=== PATIENT | male | born 1975 | race Caucasian/White ===

== ENCOUNTER 2019-07-01 16:31 | Inpatient (IN) ==
--- NOTE | 2019-07-01 16:45 | Emergency Department Note ---
ED Disposition Clinical Impression: Acute appendicitis Disposition: Admitted as Observation Condition on Discharge: Good Instructions: DI for Acute Abdomen Additional Instructions: Dr. Olivo information clerk for Dr. Fuentes will admit for Dr. Gina Gallagher is also aware this patient and will have emergent surgery. Referrals: David Lawrence MD [Primary Care Provider] - - Critical Care Critical Care Time: No Attestation: On 07/01/19, the high probability of a clinically significant, sudden or life threatening deterioration of the following system(s) required my full and direct attention, intervention and personal management. The time I documented below is in addition to time spent performing reported procedures but includes the following listed in this critical care notation. Medical Decision Making - Medical Records Medical records reviewed: Yes: I reviewed the patient's medical records. - Bry Inquiry Pt receiving controlled substance: No Vital Signs: 07/01/19 16:32 Pulse Rate [Radial] 153 H Respiratory Rate 20 Blood Pressure [Right Arm] 128/102 H Blood Pressure Mean [Right Arm] 110 Blood Pressure Source [Right Arm] Automatic Cuff Blood Pressure Position [Right Arm] Sitting 02 Sat by Pulse Oximetry 96 Oxygen Delivery Method Room Air - Lab Data Lab results reviewed: Yes: I reviewed the patient's lab results. Lab Results 07/01/19 16:50: WBC 17.5 H, RBC 4.64, Hgb 14.1, Hct 42.8, MCV 92.2, MCH 30.4, MCHC 33.0, RDW 12.7, Plt Count 283, MPV 8.5, Neut % (Auto) 88.9 H, Lymph % (Auto) 6.1 L, Bailey % (Auto) 4.9, Eos % (Auto) 0.1, Baso % (Auto) 0.1, Neut # (Auto) 15.6 H, Lymph # (Auto) 1.1, Bailey # (Auto) 0.9, Eos # (Auto) 0.0, Baso # (Auto) 0.0 07/01/19 16:50: Sodium 130 L, Potassium 3.6, Chloride 94 L, Carbon Dioxide 23, Anion Gap 16.6 H, BUN 13, Creatinine 1.00, Estimated Creat Clear 129, Estimated GFR 80, Est GFR ( Amer) 97, Glucose 146 H, Calcium 9.5, Total Bilirubin 1.6 H, AST 40, ALT 76, Alkaline Phosphatase 86, Total Protein 7.9, Albumin 4.5, Globulin 3.4 H, Albumin/Globulin Ratio 1.3 Result diagrams: 07/01/19 16:50 07/01/19 16:50 Orders (Tests/Meds): ED MEDICATIONS Generic Name Dose Route Start Last Admin Trade Name Freq PRN Reason Stop Dose Admin Sodium Chloride 1,000 mls @ 999 mls/hr 07/01/19 16:45 07/01/19 16:56 Sod Chlor 0.9% 1000ml Bag IV 07/01/19 17:45 999 mls/hr .Q1H1M DAIN Administration Discontinued Medications Generic Name Dose Route Start Last Admin Trade Name Freq PRN Reason Stop Dose Admin Morphine Sulfate 4 mg 07/01/19 16:48 07/01/19 16:57 Morphine 4mg/Ml Syringe IV 07/01/19 16:49 4 mg ONCE ONE Administration Ondansetron HCl 4 mg 07/01/19 16:48 07/01/19 16:57 Zofran 4mg/2ml Vial IV 07/01/19 16:49 4 mg ONCE ONE Administration ORDERS Category Date Time Status CT abdomen pelvis wo con Stat Cat Scan 07/01/19 16:40 Taken Complete Blood Count Auto Diff Stat Lab 07/01/19 16:50 Results - CT Data CT Scan: Abdomen (Patient has an acute rupture of the appendix with significant inflammation in the surrounding adipose tissue) Abdominal Pain HPI - General Chief Complaint: Abdominal Pain Stated Complaint: Right side pain Time Seen by Provider: 07/01/19 16:31 Mode of Arrival: Ambulatory Limitations: No Limitations Description of Symptoms (Recalled from ER Triage Doc. by RN): States he thinks he has appendicitis. Complaint of lower abdomen pain that started on thursday but has gotten way worse today. - History of Present Illness HPI narrative: 44-year-old male presents the ED with right lower quadrant pain. He states the pain started couple days ago but progressively got worse as the days gone on. He did complain of rebound tenderness he stated when he was coming into the ED and crossed over the speed bumps that it did accelerate pain in his right lower quadrant secondary to the rebound effect. He describes the pain as sharp and fullness and states the pain is 8 out of 10. Exacerbating factors include movement specifically of the right leg and alleviating factors include rest. Patient denies any recent fevers shakes or chills. But he does state that his heart rate feels rapid he presently is tachycardic with a heart rate of 131. Patient also denies any nausea or vomiting. Patient has not had any abdominal surgeries. - Related Data Allergies Allergy/AdvReac Type Severity Reaction Status Date / Time No Known Allergies Allergy Verified 07/01/19 16:40 [facility] History - Hepatitis A Screen Drug use history?: No High risk sexual behaviors?: No History of sexually transmitted infection?: No Currently employed?: No Childcare worker?: No Do you have indoor plumbing?: Yes Do you have electricity?: Yes Attestation statement:: This patient has been screened for Hepatitis A risk factors. I have reviewed the patient's past medical history: Yes - Social History Educational Level: Completed High School Alcohol Intake: never Occupational Status: employed Housing: house ROS Obtained: Yes All systems reviewed & no additional complaints - Constitutional Constitutional: Reports system reviewed and no additional complaints, except as docu - Eyes Eyes: Reports system reviewed and no additional complaints, except as docu - ENT Ears, Nose, Mouth, and Throat: Reports system reviewed and no additional complaints, except as docu - Cardiovascular Cardiovascular: Reports system reviewed and no additional complaints, except as docu - Respiratory Respiratory: Yes system reviewed and no additional complaints, except as docu - Gastrointestinal Gastrointestingal: Reports: system reviewed and no additional complaints, except as docu - Genitourinary Male Genitourinary: Reports system reviewed and no additional complaints, except as docu Female Genitourinary: Reports system reviewed and no additional complaints, except as docu - Musculoskeletal Musculoskeletal: Reports system reviewed and no additional complaints, except as docu - Integumentary/Breasts Skin/Breast: Reports system reviewed and no additional complaints, except as docu - Neurologic Neurologic: Reports system reviewed and no additional complaints, except as docu - Endocrine Endocrine: Reports system reviewed and no additional complaints, except as docu - Hematologic/Lymphatic Henatologic/Lymphatic: Reports system reviewed and no additional complaints, except as docu - Allergic/Immunologic Allergic/Immunologic: Reports system reviewed and no additional complaints, except as docu Physical Exam - General General appearance: alert, anxious - Head Head exam: atraumatic, normocephalic - Eye Eye exam: Present: normal appearance, PERRL - ENT ENT exam: Present: normal exam, normal oropharynx - Neck Neck exam: Present: normal inspection - Chest Chest inspection: Present: normal inspection, symmetric chest wall rise - Respiratory Respiratory exam: Present: normal lung sounds bilaterally. Absent: respiratory distress - Cardiovascular Cardiovascular exam: Present: tachycardia - Abdominal Exam Abdominal exam: Present: soft, guarding, rebound, psoas sign, obturator sign - Back Exam Back exam: Present: normal inspection, full ROM - Neurological Exam Neurological exam: Present: alert, oriented X3, CN II-XII intact - Psychiatric Psychiatric exam: Present: normal affect - Skin Skin exam: Present: warm - Lymphatic Lymphatic Findings: no adenopathy
[2019-07-01 17:02] LABS: Basophils % 0.1 % (0.1-2.0); Eosinophils % 0.1 % (0.1-12.0); Hematocrit 42.8 % (42.0-52.0); Hemoglobin 14.1 g/dL (14.1-18.0); Lymphocytes # 1.1 K/mm3 (0.7-4.5); Lymphocytes % 6.1 % (10-50); Mean Corpuscular Volume 92.2 fl (80-94); Mean Platelet Volume 8.5 fl (7.4-10.4); Monocytes # 0.9 K/mm3 (0.1-1.0); Monocytes % 4.9 % (1.7-9.3); Neutrophils # 15.6 K/mm3 (1.8-7.8); Neutrophils % 88.9 % (37.0-80.0); Platelet Count 283 K/mm3 (142-424); Red Blood Count 4.64 M/mm3 (4.60-6.20); Red Cell Distribution Width 12.7 % (11.5-17.5); White Blood Count 17.5 K/mm3 (4.8-10.8)
[2019-07-01 17:08] LABS: Albumin Level 4.5 g/dl (3.5-5.0); Albumin/Globulin Ratio 1.3 (1.1-1.8); Anion Gap 16.6 mEq/L (5-15); Bilirubin,Total 1.6 mg/dl (0.2-1.3); Calcium 9.5 mg/dl (8.4-10.2); Globulin 3.4 g/dL (1.3-3.2); Total Protein,Serum 7.9 g/dl (6.3-8.2)
[2019-07-01 17:53] LABS: Lymphocytes % 7 % (10-50); Monocytes % 5 % (2-9); Neutrophils % 88 % (42-76); RBC Morphology Normal; Total Cells Counted 100
--- NOTE | 2019-07-01 18:38 | Progress Note ---
[facility] Anesthesia Checklist - Structural Data Admitted From: Emergency Dept Planned Operative Procedure/s: lap appy Consent for Planned Operative Procedure(s) Verified: Yes - Airway Assessment C-Spine Mobility Assessed: Yes TMJ Mobility Assessed: Yes Dentition: Poor Dentition - Neurological Assessment Level of Consciousness: Awake, Alert, Appropriate - Anesthesia Plan Anesthesia Risk discussed: Yes Anesthesia Plan: Verified ASA Class: II Anesthesia Type: General - Preoperative Comments Pre-Operative Comments: emergency [facility] History I have reviewed the patient's past medical history: Yes *Have you ever received a pneumonia vaccine?: No *Have you received a flu vaccine this season?: No Anesthesia experience/problems:: none - *Social History Educational Level: Completed High School Alcohol Intake: never Substance Use Type: denies use *Occupational Status:: employed Housing: house *Travel in the last 8 weeks: None Family Hx:: No significant family history
--- NOTE | 2019-07-01 20:13 | Operative Note ---
Date of procedure: 07/01/19 Pre-op Diagnosis:: Perforated appendicitis Post-op Diagnosis:: Same Procedure performed:: Laparoscopic appendectomy Surgeon:: Miko Gallagher MD NURSING ASSISTANTS TEACHER:: Trace Christian Anesthesia: GETA Estimated blood loss (mL): 100 Operative findings:: Feculent material throughout right lower quadrant Necrotic appendix (perforation just distal to the base) Endoloops placed on appendiceal base (tissue appeared viable) Operative note:: After informed consent was obtained the patient was taken to the operating room and placed in the supine position. General anesthesia was induced and his abdomen was prepped and draped in a sterile fashion. After infiltration of local anesthetic a supraumbilical incision was made. A Veress needle was placed in position. The abdomen was insufflated. A 12 mm optical trocar was placed in position. Under direct visualization a 5 mm trocar was placed in the suprapubic position and an additional 5 mm trocar was placed in the left lower quadrant. Visualization of the right lower quadrant revealed feculent material and small lobules of "formed stool". The small bowel loops and colon were severely inflamed and essentially encased with thickened feculent material. Copious suctioning followed by irrigation was utilized to clear as much of this material as possible. The appendiceal tip was then encountered and elevated. The mid appendix was encased into the abdominal wall and also densely adhered to small bowel and colon. A combination of blunt dissection and harmonic willy was utilized to carefully free the mesoappendix. A small focal point of bleeding was controlled with a single clip. No ongoing bleeding noted. The appendix just distal to the base was necrotic/perforated. A transection at this site was completed with harmonic willy and the appendix was placed in a retrieval bag. The appendix was then removed through the supraumbilical trocar site. The appendiceal base appeared viable and the decision was made to proceed with placement of Endoloops. Endoloops (x2) were placed on the base. No sign of ongoing leakage noted. The Endoloops did appear to appropriately control the tissue without "cutting through". No sign of ongoing bleeding or leakage noted. The entire area was thoroughly irrigated. The irrigant was evacuated. Pneumop eritoneum was released as the trocars were removed. The fascia at the supraumbilical trocar site was reapproximated with 0 Ethibond. Skin was then closed with 4-0 Monocryl. Dressings were applied and the patient was transferred to recovery in stable condition. Condition: stable Disposition: PACU Specimens:: Appendix Complications:: No immediate
--- NOTE | 2019-07-01 20:22 | Progress Note ---
[facility] Anesthesia Record Part I Intake, IV Amount: 2,500 Estimated blood loss (mL): 100 Urine output (mL): 200 Blood Pressure: 160/58 SaO2: 95 Pulse Rate: 120 Respiratory Rate: 12 Temperature: 99 F Patient is:: Awake, Stable
--- NOTE | 2019-07-02 08:32 | Pharmacy Consult Notes ---
[facility] Pharmacy VTE Monitoring - Patient Demographics Admission date: 07/01/19 Report Date: 07/02/19 Time: 08:31 Allergies/Adverse Reactions: Patient Allergies No Known Allergies Allergy (Verified 07/01/19 16:40) Height: 1.78 m Weight: 98.43 kg Patient Problems: Current Active Problems Acute appendicitis (Acute) - VTE Risk Labs: VTE Related Lab Results Hgb 14.1 g/dL (14.1-18.0) 07/01/19 16:50 Hct 42.8 % (42.0-52.0) 07/01/19 16:50 Plt Count 283 K/mm3 (142-424) 07/01/19 16:50 BUN 13 mg/dl (9-20) 07/01/19 16:50 Creatinine 1.00 mg/dl (0.66-1.25) 07/01/19 16:50 Estimated Creat Clear 129 mL/min (50-200) 07/01/19 16:50 VTE Score: 3 VTE Risk Level: Low Risk - Prophylaxis VTE Prophylaxis Ordered?: Yes Types of VTE Prophylaxis: TEDS Knee High Location of Applied Device: Bilateral Lower Extremeties - VTE Diagnosis Confirmed Treatment or plan recommended: Continue Current Treatment
--- NOTE | 2019-07-02 08:57 | Electrocardiograph Report ---
APPROVED REPORT Exam: Resting ECG HR:129 bpm ECG Measurements Heart Rate 129 AXES DC 132 P 44 QRSd 88 QRS 71 QT 290 T10 QTc 424 <Conclusion> Sinus tachycardia Otherwise normal ECG Electronically signed by : Job Gallardo, 07/02/2019 08:57:22
--- NOTE | 2019-07-02 09:20 | History & Physical Report ---
*Admission Date: 07/01/19 *Chief complaint: abdominal pain, fever *History of present illness: Mr. Mix is an otherwise healthy 44-year-old male who presented to the ED yesterday with right lower quadrant pain. States the pain began on Thursday and was upper abdomen and gradually progressed to his right lower abdomen over the subsequent days. States Thursday it became acutely worse and he was unable to get up and walk without significant pain. Also reported pain just from the car moving over speed bumps or breaking which is indicative of peritonitis. This led him to come to the ER. In the ER was noted to have tenderness with minimal palpation, positive for rebound and guarding. Pain described as an 8 out of 10. Surgery was consulted for concern for appendicitis. Imaging confirmed diagnosis, patient was admitted for emergent surgery. This morning on exam he has diffuse tenderness in his abdomen. Surgical incisions clean dry and intact. No nausea but having pain with gas. Denies chest pain or shortness of breath. Still remains tachycardic. Afebrile at this time [facility] History I have reviewed the patient's past medical history: Yes Medical History: Denies:: Cancer, Diabetes Mellitus Type 1, Diabetes Mellitus Type 2, MRSA *Have you ever received a pneumonia vaccine?: No *Have you received a flu vaccine this season?: No Anesthesia experience/problems:: none Other Surgeries: Yes: Cholecystectomy Amputation: No Fractures: Yes (Collar bones) - *Social History Educational Level: Attended College Smoking Status: Never smoker Alcohol Intake: never Substance Use Type: denies use *Occupational Status:: employed Housing: other Household Members: spouse, children *Travel in the last 8 weeks: None Family Hx:: Cancer, Diabetes, Hypertension, Stroke Review of Systems - Review of Systems Review of systems:: pertinent systems reviewed and negative unless documented below (14 point review of systems performed, pertinent positives and negatives as per HPI) Meds Home Medications Medication Instructions Recorded Confirmed Type No Known Home Medications 07/01/19 07/01/19 History Allergies Allergy/AdvReac Type Severity Reaction Status Date / Time No Known Allergies Allergy Verified 07/01/19 16:40 Exam Vital signs and Labs for Last 24 Hours: Temp Pulse Resp BP Pulse Ox 98.6 F 107 H 16 135/98 H 97 07/02/19 08:00 07/02/19 08:00 07/02/19 08:00 07/02/19 08:00 07/02/19 08:00 Laboratory Results - last 24 hr 07/01/19 16:50: WBC 17.5 H, RBC 4.64, Hgb 14.1, Hct 42.8, MCV 92.2, MCH 30.4, MCHC 33.0, RDW 12.7, Plt Count 283, MPV 8.5, Neut % (Auto) 88.9 H, Lymph % (Auto) 6.1 L, Wy[place] % (Auto) 4.9, Eos % (Auto) 0.1, Baso % (Auto) 0.1, Neut # (Auto) 15.6 H, Lymph # (Auto) 1.1, Wy[place] # (Auto) 0.9, Eos # (Auto) 0.0, Baso # (Auto) 0.0, Total Counted 100, Neutrophils % (Manual) 88 H, Lymphocytes % (Manual) 7 L, Monocytes % (Manual) 5, Platelet Estimate Normal, RBC Morphology Normal 07/01/19 16:50: Sodium 130 L, Potassium 3.6, Chloride 94 L, Carbon Dioxide 23, Anion Gap 16.6 H, BUN 13, Creatinine 1.00, Estimated Creat Clear 129, Estimated GFR 80, Est GFR ( Amer) 97, Glucose 146 H, Calcium 9.5, Total Bilirubin 1.6 H, AST 40, ALT 76, Alkaline Phosphatase 86, Total Protein 7.9, Albumin 4.5, Globulin 3.4 H, Albumin/Globulin Ratio 1.3 07/01/19 16:50: Lactate 1.7 I & O for Last 24 hours: Intake & Output 06/29/19 06/30/19 07/01/19 07/02/19 23:59 23:59 23:59 23:59 Intake Total 2500 / 2620 1695 / 1695 Output Total 2450 / 2450 Balance 2500 / 2620 -755 / -755 Weight 98.43 kg - *Routine HEENT Exam Head: Present: normocephalic Eye: Present: EOMI, PERRL ENT: Present: mucous membranes moist - *Routine Neck Exam Present: supple. Absent: lymphadenopathy - *Routine Respiratory Exam Present: CTA bilaterally - *Routine Cardiovascular Exam Present: RRR - *Routine Abdominal Exam Present: soft, tenderness (Hypoactive bowel sounds, diffuse tenderness with rebound) - *Routine Extremities Exam Absent: cyanosis, clubbing, edema - *Routine Skin Exam Present: warm. Absent: rash - *Routine Neurological Exam Present: alert, oriented X3 Assessment and Plan (1) Acute appendicitis Current visit: Yes Status: Acute Qualifiers: Acute appendicitis type: with generalized peritonitis Appendicitis perforation presence: with perforation Category: Medical Code(s): K35.80 - Unspecified acute appendicitis Status post surgery - Assessment and plan all Dx Assessment and Plan for all problems:: 44-year-old gentleman with acute appendicitis and perforation. Developed signs of peritonitis. Had ronal feculent material throughout abdomen. Status post washout as well. We will continue to monitor on antibiotics, medication for pain, and clear liquid diet at this time. If continues to improve and remains afebrile, will gradually advance diet over the coming days. Further management from a imaging or repeat surgery standpoint per surgery. No other acute medical needs at this time. Clinically guarded, prognosis good. Remains full code.
[2019-07-02 10:12] LABS: Lymphocytes # 0.7 K/mm3 (0.7-4.5); Monocytes # 0.6 K/mm3 (0.1-1.0)
[2019-07-02 10:18] LABS: Basophils % 0.1 % (0.1-2.0); Eosinophils % 0.1 % (0.1-12.0); Hematocrit 37.4 % (42.0-52.0); Lymphocytes % 4.9 % (10-50); Mean Corpuscular Volume 92.9 fl (80-94); Mean Platelet Volume 8.5 fl (7.4-10.4); Monocytes % 4.1 % (1.7-9.3); Neutrophils # 13.3 K/mm3 (1.8-7.8); Neutrophils % 90.9 % (37.0-80.0); Platelet Count 279 K/mm3 (142-424); Red Blood Count 4.03 M/mm3 (4.60-6.20); Red Cell Distribution Width 12.8 % (11.5-17.5); White Blood Count 14.6 K/mm3 (4.8-10.8)
[2019-07-02 10:20] LABS: Anion Gap 13.8 mEq/L (5-15); Calcium 9.3 mg/dl (8.4-10.2); Hemoglobin 12.4 g/dL (14.1-18.0)
--- NOTE | 2019-07-02 10:24 | Progress Note ---
Subjective Patient reports: feels better, tolerating liquids well Exam Vital signs and Labs for Last 24 Hours: Temp Pulse Resp BP Pulse Ox 98.6 F 107 H 16 135/98 H 97 07/02/19 08:00 07/02/19 08:00 07/02/19 08:00 07/02/19 08:00 07/02/19 08:00 Laboratory Results - last 24 hr 07/01/19 16:50: WBC 17.5 H, RBC 4.64, Hgb 14.1, Hct 42.8, MCV 92.2, MCH 30.4, MCHC 33.0, RDW 12.7, Plt Count 283, MPV 8.5, Neut % (Auto) 88.9 H, Lymph % (Auto) 6.1 L, Thomas % (Auto) 4.9, Eos % (Auto) 0.1, Baso % (Auto) 0.1, Neut # (Auto) 15.6 H, Lymph # (Auto) 1.1, Thomas # (Auto) 0.9, Eos # (Auto) 0.0, Baso # (Auto) 0.0, Total Counted 100, Neutrophils % (Manual) 88 H, Lymphocytes % (Manual) 7 L, Monocytes % (Manual) 5, Platelet Estimate Normal, RBC Morphology Normal 07/01/19 16:50: Sodium 130 L, Potassium 3.6, Chloride 94 L, Carbon Dioxide 23, Anion Gap 16.6 H, BUN 13, Creatinine 1.00, Estimated Creat Clear 129, Estimated GFR 80, Est GFR ( Amer) 97, Glucose 146 H, Calcium 9.5, Total Bilirubin 1.6 H, AST 40, ALT 76, Alkaline Phosphatase 86, Total Protein 7.9, Albumin 4.5, Globulin 3.4 H, Albumin/Globulin Ratio 1.3 07/01/19 16:50: Lactate 1.7 07/02/19 09:35: WBC 14.6 H, RBC 4.03 L, Hgb 12.4 L D, Hct 37.4 L, MCV 92.9, MCH 30.7, MCHC 33.0, RDW 12.8, Plt Count 279, MPV 8.5, Neut % (Auto) 90.9 H, Lymph % (Auto) 4.9 L, Thomas % (Auto) 4.1, Eos % (Auto) 0.1, Baso % (Auto) 0.1, Neut # (Auto) 13.3 H, Lymph # (Auto) 0.7, Thomas # (Auto) 0.6, Eos # (Auto) 0.0, Baso # (Auto) 0.0 07/02/19 09:35: Sodium 136, Potassium 3.8, Chloride 98, Carbon Dioxide 28 D, Anion Gap 13.8, BUN 12, Creatinine 0.90, Estimated Creat Clear 143, Estimated GFR 91, Est GFR ( Amer) 110, Glucose 179 H D, Calcium 9.3 I & O for Last 24 hours: Intake & Output 06/29/19 06/30/19 07/01/19 07/02/19 11:59 11:59 11:59 11:59 Intake Total 4195 / 4195 Output Total 2825 / 2825 Balance 1370 / 1370 Weight 217 lb - Constitutional no acute distress - *Routine Respiratory Exam Absent: respiratory distress - *Routine Cardiovascular Exam Present: tachycardia - *Routine Abdominal Exam Present: soft Comments: Dressings intact. No cellulitis. Progress Note: A&P (1) Perforated appendicitis Status: Acute Assessment and plan: Overall, doing well status post laparoscopic appendectomy. Slowly advance to full liquids Increase ambulation Continue Zosyn Follow-up a.m. labs Serial abdominal exams Current Visit: Yes
[2019-07-02 10:30] LABS: Eosinophils % 1 % (0-3); Lymphocytes % 5 % (10-50); Monocytes % 5 % (2-9); Neutrophils % 89 % (42-76); RBC Morphology Normal; Total Cells Counted 100
[2019-07-03 07:23] LABS: Basophils % 0.1 % (0.1-2.0); Eosinophils % 0.1 % (0.1-12.0); Hematocrit 39.3 % (42.0-52.0); Hemoglobin 12.6 g/dL (14.1-18.0); Lymphocytes # 1.3 K/mm3 (0.7-4.5); Lymphocytes % 9.8 % (10-50); Mean Corpuscular HGB Conc 32.1 g/dL (31.8-35.4); Mean Corpuscular Volume 93.2 fl (80-94); Mean Platelet Volume 8.4 fl (7.4-10.4); Monocytes # 0.7 K/mm3 (0.1-1.0); Neutrophils # 11.4 K/mm3 (1.8-7.8); Platelet Count 317 K/mm3 (142-424); Red Blood Count 4.22 M/mm3 (4.60-6.20); Red Cell Distribution Width 12.9 % (11.5-17.5); White Blood Count 13.4 K/mm3 (4.8-10.8)
--- NOTE | 2019-07-03 07:50 | Progress Note ---
Internal Medicine - PN: Subj *Date: 07/03/19 *Time: 07:48 Interval history: Patient did somewhat poorly through the night. Had significant bloating, nausea and distention, relieved with NG tube placement both symptomatically and with over 1 L of gastric aspirate. He feels better, did have some flatus after an enema was placed yesterday but otherwise has not had flatus or bowel movements. No pain in the abdomen this morning. Denies respiratory problems Exam Vital signs and Labs for Last 24 Hours: Temp Pulse Resp BP Pulse Ox 98.9 F 120 H 18 144/89 H 94 L 07/03/19 04:00 07/03/19 04:00 07/03/19 04:00 07/03/19 04:00 07/03/19 04:00 Laboratory Results - last 24 hr 07/02/19 09:35: WBC 14.6 H, RBC 4.03 L, Hgb 12.4 L D, Hct 37.4 L, MCV 92.9, MCH 30.7, MCHC 33.0, RDW 12.8, Plt Count 279, MPV 8.5, Neut % (Auto) 90.9 H, Lymph % (Auto) 4.9 L, Harrison % (Auto) 4.1, Eos % (Auto) 0.1, Baso % (Auto) 0.1, Neut # (Auto) 13.3 H, Lymph # (Auto) 0.7, Harrison # (Auto) 0.6, Eos # (Auto) 0.0, Baso # (Auto) 0.0, Total Counted 100, Neutrophils % (Manual) 89 H, Lymphocytes % (Manual) 5 L, Monocytes % (Manual) 5, Eosinophils % (Manual) 1, Platelet Estimate Normal, RBC Morphology Normal 07/02/19 09:35: Sodium 136, Potassium 3.8, Chloride 98, Carbon Dioxide 28 D, Anion Gap 13.8, BUN 12, Creatinine 0.90, Estimated Creat Clear 143, Estimated GFR 91, Est GFR ( Amer) 110, Glucose 179 H D, Calcium 9.3 07/03/19 06:20: WBC 13.4 H, RBC 4.22 L, Hgb 12.6 L, Hct 39.3 L, MCV 93.2, MCH 30.0, MCHC 32.1, RDW 12.9, Plt Count 317, MPV 8.4, Neut % (Auto) 85.0 H, Lymph % (Auto) 9.8 L, Harrison % (Auto) 5.0, Eos % (Auto) 0.1, Baso % (Auto) 0.1, Neut # (Auto) 11.4 H, Lymph # (Auto) 1.3, Harrison # (Auto) 0.7, Eos # (Auto) 0.0, Baso # (Auto) 0.0 I & O for Last 24 hours: Intake & Output 06/30/19 07/01/19 07/02/19 07/03/19 11:59 11:59 11:59 12:59 Intake Total 4195 / 4195 2972 / 2972 Output Total 2975 / 2975 1100 / 1100 Balance 1220 / 1220 1872 / 1872 Weight 217 lb 220 lb 0.016 oz Microbiology Reports for the Last 24 Hours: Microbiology 07/01/19 16:50 Blood Blood Culture - Preliminary 07/01/19 16:50 Blood Blood Culture - Preliminary Narrative: Pleasant alert, neurologically intact. Oropharynx clear. NG tube draining scant amount of gastric aspirate in the right nostril. Lungs are clear, heart rate regular. Abdomen is slightly distended but soft, scars from surgery procedure look good. No peripheral edema or clubbing. Patient has no rash Able to pull 1500 mL's of tidal volume on incentive spirometer Assessment and Plan (1) Perforated appendicitis Current visit: Yes Status: Acute Category: Medical Code(s): K35.32 - Acute appendicitis with perforation and localized peritonitis, without abscess Continue IV antibiotics at this point. White count improving. Check labs tomorrow. (2) Ileus following gastrointestinal surgery Current visit: Yes Status: Acute Category: Medical Code(s): K91.89 - Other postprocedural complications and disorders of digestive system; K56.7 - Ileus, unspecified Continue NG drainage. Further plan per surgery.
[2019-07-03 07:56] LABS: Lymphocytes % 9 % (10-50); Monocytes % 5 % (2-9); Neutrophils % 86 % (42-76); RBC Morphology Normal; Total Cells Counted 100
--- NOTE | 2019-07-03 09:54 | Progress Note ---
Subjective Narrative: Nasogastric tube placed overnight secondary to increased nausea/vomiting/abdominal bloating. He states he "feels much better right now". He has had a small bowel movement and a small amount of flatus with enemas. Exam Vital signs and Labs for Last 24 Hours: Temp Pulse Resp BP Pulse Ox 98.3 F 119 H 18 126/81 93 L 07/03/19 08:00 07/03/19 08:00 07/03/19 08:00 07/03/19 08:00 07/03/19 08:00 Laboratory Results - last 24 hr 07/02/19 09:35: WBC 14.6 H, RBC 4.03 L, Hgb 12.4 L D, Hct 37.4 L, MCV 92.9, MCH 30.7, MCHC 33.0, RDW 12.8, Plt Count 279, MPV 8.5, Neut % (Auto) 90.9 H, Lymph % (Auto) 4.9 L, [place] % (Auto) 4.1, Eos % (Auto) 0.1, Baso % (Auto) 0.1, Neut # (Auto) 13.3 H, Lymph # (Auto) 0.7, [place] # (Auto) 0.6, Eos # (Auto) 0.0, Baso # (Auto) 0.0, Total Counted 100, Neutrophils % (Manual) 89 H, Lymphocytes % (Manual) 5 L, Monocytes % (Manual) 5, Eosinophils % (Manual) 1, Platelet Estimate Normal, RBC Morphology Normal 07/02/19 09:35: Sodium 136, Potassium 3.8, Chloride 98, Carbon Dioxide 28 D, Anion Gap 13.8, BUN 12, Creatinine 0.90, Estimated Creat Clear 143, Estimated GFR 91, Est GFR ( Amer) 110, Glucose 179 H D, Calcium 9.3 07/03/19 06:20: WBC 13.4 H, RBC 4.22 L, Hgb 12.6 L, Hct 39.3 L, MCV 93.2, MCH 30.0, MCHC 32.1, RDW 12.9, Plt Count 317, MPV 8.4, Neut % (Auto) 85.0 H, Lymph % (Auto) 9.8 L, [place] % (Auto) 5.0, Eos % (Auto) 0.1, Baso % (Auto) 0.1, Neut # (Auto) 11.4 H, Lymph # (Auto) 1.3, [place] # (Auto) 0.7, Eos # (Auto) 0.0, Baso # (Auto) 0.0, Total Counted 100, Neutrophils % (Manual) 86 H, Lymphocytes % (Manual) 9 L, Monocytes % (Manual) 5, Platelet Estimate Normal, RBC Morphology Normal I & O for Last 24 hours: Intake & Output 06/30/19 07/01/19 07/02/19 07/03/19 11:59 11:59 11:59 12:59 Intake Total 4195 / 4195 3212 / 3212 Output Total 2975 / 2975 1100 / 1100 Balance 1220 / 1220 2112 / 2112 Weight 217 lb 220 lb 0.016 oz Microbiology Reports for the Last 24 Hours: Microbiology 07/01/19 16:50 Blood Blood Culture - Preliminary 07/01/19 16:50 Blood Blood Culture - Preliminary - Constitutional no acute distress - *Routine Respiratory Exam Absent: respiratory distress - *Routine Cardiovascular Exam Present: tachycardia - *Routine Abdominal Exam Present: soft Comments: Incisions clean, dry, and intact. No erythema. Progress Note: A&P (1) Perforated appendicitis Status: Acute Assessment and plan: Continue IV antibiotics and serial abdominal exams Current Visit: Yes (2) Ileus following gastrointestinal surgery Status: Acute Assessment and plan: Continue nasogastric decompression for now. Increase ambulation. Current Visit: Yes
[2019-07-04 05:58] LABS: Basophils % 0.2 % (0.1-2.0); Eosinophils % 0.4 % (0.1-12.0); Hematocrit 35.6 % (42.0-52.0); Hemoglobin 11.4 g/dL (14.1-18.0); Lymphocytes # 1.4 K/mm3 (0.7-4.5); Lymphocytes % 15.5 % (10-50); Mean Corpuscular HGB Conc 31.9 g/dL (31.8-35.4); Mean Corpuscular Volume 93.9 fl (80-94); Mean Platelet Volume 7.9 fl (7.4-10.4); Monocytes # 0.5 K/mm3 (0.1-1.0); Monocytes % 5.8 % (1.7-9.3); Neutrophils % 78.1 % (37.0-80.0); Platelet Count 304 K/mm3 (142-424); Red Blood Count 3.79 M/mm3 (4.60-6.20); Red Cell Distribution Width 12.8 % (11.5-17.5)
[2019-07-04 06:06] LABS: Albumin/Globulin Ratio 1.1 (1.1-1.8); Anion Gap 10.3 mEq/L (5-15); Bilirubin,Total 0.9 mg/dl (0.2-1.3); Globulin 2.8 g/dL (1.3-3.2); Total Protein,Serum 5.8 g/dl (6.3-8.2)
[2019-07-04 06:07] LABS: Calcium 8.2 mg/dl (8.4-10.2)
--- NOTE | 2019-07-04 07:38 | Progress Note ---
Subjective Patient reports: flatus, bowel movement Narrative: Overall, feels "a little better this morning". No nausea or vomiting. Continues to have fairly significant nasogastric output. He has had what he describes as a small bowel movement and "a little bit of gas". Exam Vital signs and Labs for Last 24 Hours: Temp Pulse Resp BP Pulse Ox 99.1 F 109 H 16 134/90 94 L 07/04/19 04:00 07/04/19 04:00 07/04/19 04:00 07/04/19 04:00 07/04/19 04:00 Laboratory Results - last 24 hr 07/03/19 06:20: Total Counted 100, Neutrophils % (Manual) 86 H, Lymphocytes % (Manual) 9 L, Monocytes % (Manual) 5, Platelet Estimate Normal, RBC Morphology Normal 07/04/19 05:30: WBC 9.0 D, RBC 3.79 L, Hgb 11.4 L, Hct 35.6 L, MCV 93.9, MCH 30.0, MCHC 31.9, RDW 12.8, Plt Count 304, MPV 7.9, Neut % (Auto) 78.1, Lymph % (Auto) 15.5, [place] % (Auto) 5.8, Eos % (Auto) 0.4, Baso % (Auto) 0.2, Neut # (Auto) 7.0, Lymph # (Auto) 1.4, [place] # (Auto) 0.5, Eos # (Auto) 0.0, Baso # (Auto) 0.0 07/04/19 05:30: Sodium 137, Potassium 3.3 L, Chloride 102, Carbon Dioxide 28, Anion Gap 10.3, BUN 13, Creatinine 0.90, Estimated Creat Clear 156, Estimated GFR 91, Est GFR ( Amer) 110, Glucose 132 H, Calcium 8.2 L D, Total Bilirubin 0.9, AST 19 D, ALT 25 D, Alkaline Phosphatase 71, Total Protein 5.8 L D, Albumin 3.0 L, Globulin 2.8, Albumin/Globulin Ratio 1.1 I & O for Last 24 hours: Intake & Output 07/01/19 07/02/19 07/03/19 07/04/19 10:59 10:59 11:59 11:59 Intake Total 5094 / 5094 Output Total 2250 / 2250 Balance 2844 / 2844 Weight 237 lb 1 oz Microbiology Reports for the Last 24 Hours: Microbiology 07/01/19 16:50 Blood Blood Culture - Preliminary Gram Negative Rods 07/01/19 16:50 Blood Blood Culture - Preliminary - Constitutional no acute distress - *Routine Respiratory Exam Absent: respiratory distress - *Routine Cardiovascular Exam Present: tachycardia - *Routine Abdominal Exam Present: soft Comments: Incisions clean, dry, and intact. No erythema. Progress Note: A&P (1) Perforated appendicitis Status: Acute Assessment and plan: Overall, doing fairly well status post laparoscopic appendectomy. Current Visit: Yes (2) Ileus following gastrointestinal surgery Status: Acute Assessment and plan: Slowly improving Nasogastric tube to drain bag with every 4 hours residuals Current Visit: Yes
--- NOTE | 2019-07-04 08:05 | Progress Note ---
Internal Medicine - PN: Subj *Date: 07/04/19 *Time: 08:04 Interval history: Patient feels good today. Surgical consultation reviewed and appreciated. Exam Vital signs and Labs for Last 24 Hours: Temp Pulse Resp BP Pulse Ox 99.1 F 109 H 16 134/90 94 L 07/04/19 04:00 07/04/19 04:00 07/04/19 04:00 07/04/19 04:00 07/04/19 04:00 Laboratory Results - last 24 hr 07/04/19 05:30: WBC 9.0 D, RBC 3.79 L, Hgb 11.4 L, Hct 35.6 L, MCV 93.9, MCH 30.0, MCHC 31.9, RDW 12.8, Plt Count 304, MPV 7.9, Neut % (Auto) 78.1, Lymph % (Auto) 15.5, [place] % (Auto) 5.8, Eos % (Auto) 0.4, Baso % (Auto) 0.2, Neut # (Auto) 7.0, Lymph # (Auto) 1.4, [place] # (Auto) 0.5, Eos # (Auto) 0.0, Baso # (Auto) 0.0 07/04/19 05:30: Sodium 137, Potassium 3.3 L, Chloride 102, Carbon Dioxide 28, Anion Gap 10.3, BUN 13, Creatinine 0.90, Estimated Creat Clear 156, Estimated GFR 91, Est GFR ( Amer) 110, Glucose 132 H, Calcium 8.2 L D, Total Bilirubin 0.9, AST 19 D, ALT 25 D, Alkaline Phosphatase 71, Total Protein 5.8 L D, Albumin 3.0 L, Globulin 2.8, Albumin/Globulin Ratio 1.1 I & O for Last 24 hours: Intake & Output 07/01/19 07/02/19 07/03/19 07/04/19 10:59 10:59 11:59 11:59 Intake Total 5094 / 5094 Output Total 2250 / 2250 Balance 2844 / 2844 Weight 237 lb 1 oz Microbiology Reports for the Last 24 Hours: Microbiology 07/01/19 16:50 Blood Blood Culture - Preliminary Gram Negative Rods 07/01/19 16:50 Blood Blood Culture - Preliminary Narrative: Pleasant, NG tube in place. Lungs clear, heart rate regular. Neurologically intact. Abdomen soft, scars look good. No edema or clubbing. Assessment and Plan (1) Perforated appendicitis Current visit: Yes Status: Acute Category: Medical Code(s): K35.32 - Acute appendicitis with perforation and localized peritonitis, without abscess (2) Ileus following gastrointestinal surgery Current visit: Yes Status: Acute Category: Medical Code(s): K91.89 - Other postprocedural complications and disorders of digestive system; K56.7 - Ileus, unspecified - Assessment and plan all Dx Assessment and Plan for all problems:: Agree with surgical plan as noted. Good postoperative recovery, slow recovery anticipated
[2019-07-05 06:23] LABS: Basophils # 0.1 K/mm3 (0-0.2); Basophils % 0.6 % (0.1-2.0); Eosinophils # 0.2 K/mm3 (0.0-0.4); Eosinophils % 2.4 % (0.1-12.0); Hematocrit 34.1 % (42.0-52.0); Hemoglobin 10.6 g/dL (14.1-18.0); Mean Corpuscular HGB Conc 31.1 g/dL (31.8-35.4); Mean Corpuscular Volume 94.9 fl (80-94); Mean Platelet Volume 7.7 fl (7.4-10.4); Monocytes # 0.4 K/mm3 (0.1-1.0); Monocytes % 4.8 % (1.7-9.3); Neutrophils # 5.4 K/mm3 (1.8-7.8); Neutrophils % 67.2 % (37.0-80.0); Platelet Count 318 K/mm3 (142-424); Red Blood Count 3.59 M/mm3 (4.60-6.20); White Blood Count 8.1 K/mm3 (4.8-10.8)
--- NOTE | 2019-07-05 08:19 | Progress Note ---
Internal Medicine - PN: Subj *Date: 07/05/19 *Time: 08:13 Exam Vital signs and Labs for Last 24 Hours: Temp Pulse Resp BP Pulse Ox 98.6 F 94 H 16 122/90 93 L 07/05/19 08:00 07/05/19 08:00 07/05/19 08:00 07/05/19 08:00 07/05/19 08:00 Laboratory Results - last 24 hr 07/05/19 06:00: WBC 8.1, RBC 3.59 L, Hgb 10.6 L, Hct 34.1 L, MCV 94.9 H, MCH 29.6, MCHC 31.1 L, RDW 13.0, Plt Count 318, MPV 7.7, Neut % (Auto) 67.2, Lymph % (Auto) 25.0, [place] % (Auto) 4.8, Eos % (Auto) 2.4, Baso % (Auto) 0.6, Neut # (Auto) 5.4, Lymph # (Auto) 2.0, [place] # (Auto) 0.4, Eos # (Auto) 0.2, Baso # (Auto) 0.1 I & O for Last 24 hours: Intake & Output 07/02/19 07/03/19 07/04/19 07/05/19 22:59 23:59 23:59 23:59 Intake Total 3259 / 3259 1590 / 1590 Output Total 2190 / 2190 480 / 480 Balance 1069 / 1069 1110 / 1110 Weight 107.53 kg 108.862 kg Microbiology Reports for the Last 24 Hours: Microbiology 07/01/19 16:50 Blood Blood Culture - Preliminary Gram Negative Rods 07/01/19 16:50 Blood Blood Culture - Preliminary Assessment and Plan (1) Perforated appendicitis Current visit: Yes Status: Acute Category: Medical Code(s): K35.32 - Acute appendicitis with perforation and localized peritonitis, without abscess (2) Ileus following gastrointestinal surgery Current visit: Yes Status: Acute Category: Medical Code(s): K91.89 - Other postprocedural complications and disorders of digestive system; K56.7 - Ileus, unspecified The patient's infection will respond to the chosen ABx?: Yes Is the patient receiving the right drug, dose, and route?: Yes Could a more targeted ABx be ordered?: No (wbc wnl, gram negative rods.)
--- NOTE | 2019-07-05 08:23 | Progress Note ---
Internal Medicine - PN: Subj *Date: 07/05/19 *Time: 08:36 Interval history: Mr. Mix did well overnight. No further vomiting. Has not passed any gas but does feel gas moving in his belly per his report. Abdominal pain mild. Minimal green bilious output from NG. Tolerating ice chips. No fever, chest pain, shortness of breath. Ambulated 6-7 times yesterday. Hemodynamically stable this morning. No events overnight Exam Vital signs and Labs for Last 24 Hours: Temp Pulse Resp BP Pulse Ox 98.6 F 94 H 16 122/90 93 L 07/05/19 08:00 07/05/19 08:00 07/05/19 08:00 07/05/19 08:00 07/05/19 08:00 Laboratory Results - last 24 hr 07/05/19 06:00: WBC 8.1, RBC 3.59 L, Hgb 10.6 L, Hct 34.1 L, MCV 94.9 H, MCH 29.6, MCHC 31.1 L, RDW 13.0, Plt Count 318, MPV 7.7, Neut % (Auto) 67.2, Lymph % (Auto) 25.0, [place] % (Auto) 4.8, Eos % (Auto) 2.4, Baso % (Auto) 0.6, Neut # (Auto) 5.4, Lymph # (Auto) 2.0, [place] # (Auto) 0.4, Eos # (Auto) 0.2, Baso # (Auto) 0.1 I & O for Last 24 hours: Intake & Output 07/02/19 07/03/19 07/04/19 07/05/19 22:59 23:59 23:59 23:59 Intake Total 3259 / 3259 1590 / 1590 Output Total 2190 / 2190 480 / 480 Balance 1069 / 1069 1110 / 1110 Weight 107.53 kg 108.862 kg Microbiology Reports for the Last 24 Hours: Microbiology 07/01/19 16:50 Blood Blood Culture - Preliminary Gram Negative Rods 07/01/19 16:50 Blood Blood Culture - Preliminary Narrative: Pleasant, NG tube in place. Lungs clear, heart rate regular. Neurologically intact. Abdomen soft, hypoactive bowel sounds, scars look good. No edema or clubbing. Assessment and Plan (1) Perforated appendicitis Current visit: Yes Status: Acute Category: Medical Code(s): K35.32 - Acute appendicitis with perforation and localized peritonitis, without abscess (2) Ileus following gastrointestinal surgery Current visit: Yes Status: Acute Category: Medical Code(s): K91.89 - Other postprocedural complications and disorders of digestive system; K56.7 - Ileus, unspecified - Assessment and plan all Dx Assessment and Plan for all problems:: Agree with surgical plan as noted. Good postoperative recovery, slow recovery anticipated
--- NOTE | 2019-07-05 08:46 | Progress Note ---
Subjective Patient reports: feels better, no flatus, bowel movement Exam Vital signs and Labs for Last 24 Hours: Temp Pulse Resp BP Pulse Ox 98.6 F 94 H 16 122/90 93 L 07/05/19 08:00 07/05/19 08:00 07/05/19 08:00 07/05/19 08:00 07/05/19 08:00 Laboratory Results - last 24 hr 07/05/19 06:00: WBC 8.1, RBC 3.59 L, Hgb 10.6 L, Hct 34.1 L, MCV 94.9 H, MCH 29. 6, MCHC 31.1 L, RDW 13.0, Plt Count 318, MPV 7.7, Neut % (Auto) 67.2, Lymph % (Auto) 25.0, [place] % (Auto) 4.8, Eos % (Auto) 2.4, Baso % (Auto) 0.6, Neut # (Auto) 5.4, Lymph # (Auto) 2.0, [place] # (Auto) 0.4, Eos # (Auto) 0.2, Baso # (Auto) 0.1 I & O for Last 24 hours: Intake & Output 07/02/19 07/03/19 07/04/19 07/05/19 10:59 11:59 11:59 11:59 Intake Total 5214 / 5214 1590 / 1590 Output Total 2250 / 2250 1370 / 1370 Balance 2964 / 2964 220 / 220 Weight 237 lb 1 oz 240 lb Microbiology Reports for the Last 24 Hours: Microbiology 07/01/19 16:50 Blood Blood Culture - Preliminary Gram Negative Rods 07/01/19 16:50 Blood Blood Culture - Preliminary - Constitutional no acute distress - *Routine Respiratory Exam Absent: respiratory distress - *Routine Cardiovascular Exam Present: RRR - *Routine Abdominal Exam Present: soft Comments: no cellulitis Progress Note: A&P (1) Perforated appendicitis Status: Acute Assessment and plan: Overall, doing fairly well status post laparoscopic appendectomy. Current Visit: Yes (2) Ileus following gastrointestinal surgery Status: Acute Assessment and plan: Slowly improving with fairly low nasogastric residuals. No additional nausea/vomiting. Remove nasogastric tube Clear liquids cautiously Current Visit: Yes
--- NOTE | 2019-07-06 08:34 | Progress Note ---
Internal Medicine - PN: Subj *Date: 07/06/19 *Time: 08:34 Interval history: Overall patient is doing well, feels well, much less bloating. Has passed a couple of bowel movements overnight. Exam Vital signs and Labs for Last 24 Hours: Temp Pulse Resp BP Pulse Ox 98.7 F 76 16 137/96 H 93 L 07/06/19 08:00 07/06/19 08:00 07/06/19 08:00 07/06/19 08:00 07/06/19 08:00 I & O for Last 24 hours: Intake & Output 07/03/19 07/04/19 07/05/19 07/06/19 11:59 11:59 11:59 11:59 Intake Total 5214 / 5214 1590 / 1590 3901 / 3901 Output Total 2250 / 2250 1370 / 1370 Balance 2964 / 2964 220 / 220 3901 / 3901 Weight 237 lb 1 oz 240 lb 138 lb 9 oz Microbiology Reports for the Last 24 Hours: Microbiology 07/01/19 16:50 Blood Blood Culture - Preliminary Burkholderia cepacia 07/01/19 16:50 Blood Blood Culture - Preliminary Gram Negative Rods Narrative: Overall patient is pleasant, talkative. Lungs are clear, heart rate regular, ENT exam clear. Neurologic exam intact. Abdomen is softer, a paucity of bowel sounds are noted but they are present. No extremity edema or clubbing. No rash Assessment and Plan (1) Perforated appendicitis Current visit: Yes Status: Acute Category: Medical Code(s): K35.32 - Acute appendicitis with perforation and localized peritonitis, without abscess (2) Ileus following gastrointestinal surgery Current visit: Yes Status: Acute Category: Medical Code(s): K91.89 - Other postprocedural complications and disorders of digestive system; K56.7 - Ileus, unspecified - Assessment and plan all Dx Assessment and Plan for all problems:: Slow but steady improvement. Follow surgical plan.
--- NOTE | 2019-07-06 08:51 | Progress Note ---
Subjective Patient reports: feels better, bowel movement Narrative: still feels "a bit bloated" Exam Vital signs and Labs for Last 24 Hours: Temp Pulse Resp BP Pulse Ox 98.7 F 76 16 137/96 H 93 L 07/06/19 08:00 07/06/19 08:00 07/06/19 08:00 07/06/19 08:00 07/06/19 08:00 I & O for Last 24 hours: Intake & Output 07/03/19 07/04/19 07/05/19 07/06/19 11:59 11:59 11:59 11:59 Intake Total 5214 / 5214 1590 / 1590 3901 / 3901 Output Total 2250 / 2250 1370 / 1370 Balance 2964 / 2964 220 / 220 3901 / 3901 Weight 237 lb 1 oz 240 lb 138 lb 9 oz Microbiology Reports for the Last 24 Hours: Microbiology 07/01/19 16:50 Blood Blood Culture - Preliminary Burkholderia cepacia 07/01/19 16:50 Blood Blood Culture - Preliminary Gram Negative Rods - Constitutional no acute distress - *Routine Respiratory Exam Absent: respiratory distress - *Routine Cardiovascular Exam Present: RRR - *Routine Abdominal Exam Present: soft Progress Note: A&P (1) Perforated appendicitis Status: Acute Assessment and plan: Overall, doing well status post laparoscopic appendectomy. DC IV antibiotics Begin Augmentin and complete course secondary to copious feculent material throughout the right lower quadrant (as opposed to contained perforation) Current Visit: Yes (2) Ileus following gastrointestinal surgery Status: Acute Assessment and plan: Slowly improving. Full liquid diet Current Visit: Yes
--- NOTE | 2019-07-06 12:41 | Progress Note ---
[facility] Anesthesia Record Part II Discharge Time: 20:35 Destination: floor PACU nurse assessment reviewed?: Yes Patient Condition:: Good Anesthesia Complications:: None Swallowing reflex intact?: Yes Cyanosis?: No Blood Pressure: 138/90 Pulse Rate: 116 Temperature: 98.6 F Mental Status: Alert & Oriented Pain level:: 0 Nausea and/or vomitting:: None Intake, IV Amount: 1,500
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
[2019-07-07 08:18] VITALS: BP 136/92
--- NOTE | 2019-07-07 09:28 | Progress Note ---
Subjective Patient reports: no new complaints, feels better, bowel movement Exam Vital signs and Labs for Last 24 Hours: Temp Pulse Resp BP Pulse Ox 97.8 F 95 H 16 136/92 H 97 07/07/19 08:00 07/07/19 08:00 07/07/19 08:00 07/07/19 08:00 07/07/19 08:00 I & O for Last 24 hours: Intake & Output 07/04/19 07/05/19 07/06/19 07/07/19 11:59 11:59 11:59 11:59 Intake Total 5214 / 5214 1590 / 1590 3901 / 3901 4103 / 4103 Output Total 2250 / 2250 1370 / 1370 Balance 2964 / 2964 220 / 220 3901 / 3901 4103 / 4103 Weight 237 lb 1 oz 240 lb 138 lb 9 oz 228 lb 2 oz Microbiology Reports for the Last 24 Hours: Microbiology 07/01/19 16:50 Blood Blood Culture - Preliminary Burkholderia cepacia 07/01/19 16:50 Blood Blood Culture - Preliminary Burkholderia cepacia - Constitutional no acute distress - *Routine Respiratory Exam Absent: respiratory distress - *Routine Cardiovascular Exam Present: RRR - *Routine Abdominal Exam Present: soft Comments: Incision(s) clean, dry, and intact. No erythema. Progress Note: A&P (1) Perforated appendicitis Status: Acute Assessment and plan: Overall, doing very well status post laparoscopic appendectomy Okay from surgical standpoint for discharge home with close outpatient follow- up. Complete course of antibiotics (note: copious feculent material throughout right lower quadrant) Current Visit: Yes (2) Ileus following gastrointestinal surgery Status: Acute Assessment and plan: Continuing to resolve Current Visit: Yes
== END 2019-07-07 13:30 | disposition home or self-care (01) | DRG 339 ==
LOC: ER 16:31 → SDC 18:09 → 2ND 18:12
PROVIDERS: ADMIT Family Medicine; ATTEND Internal Medicine Adolescent Medicine
CPT/HCPCS: 36415; 71010; 71045; 74176; 80048; 80053; 83605; 85007; 85025; 87040; 87077; 87186; 93005; 96365; 96375; 99283; 99284; J2405; J2543

== ENCOUNTER 2019-07-13 14:04 | Observation (INO) ==
[2019-07-13 15:24] LABS: Basophils % 0.2 % (0.1-2.0); Eosinophils % 0.2 % (0.1-12.0); Hematocrit 41.5 % (42.0-52.0); Hemoglobin 13.4 g/dL (14.1-18.0); Lymphocytes # 1.5 K/mm3 (0.7-4.5); Lymphocytes % 8.7 % (10-50); Mean Corpuscular HGB Conc 32.2 g/dL (31.8-35.4); Mean Corpuscular Volume 92.9 fl (80-94); Mean Platelet Volume 7.6 fl (7.4-10.4); Monocytes # 0.5 K/mm3 (0.1-1.0); Monocytes % 2.9 % (1.7-9.3); Neutrophils # 14.8 K/mm3 (1.8-7.8); Neutrophils % 88.1 % (37.0-80.0); Platelet Count 628 K/mm3 (142-424); Red Blood Count 4.47 M/mm3 (4.60-6.20); Red Cell Distribution Width 13.1 % (11.5-17.5); White Blood Count 16.8 K/mm3 (4.8-10.8)
[2019-07-13 15:30] LABS: Anion Gap 14.7 mEq/L (5-15); Calcium 9.6 mg/dl (8.4-10.2)
--- NOTE | 2019-07-13 15:43 | Pharmacy Consult Notes ---
[facility] Pharmacy VTE Monitoring - Patient Demographics Admission date: 07/13/19 Report Date: 07/13/19 Time: 15:43 Allergies/Adverse Reactions: Patient Allergies No Known Allergies Allergy (Verified 07/13/19 13:28) Height: 1.78 m Weight: 93.44 kg - VTE Risk Labs: VTE Related Lab Results BUN 7 mg/dl (9-20) L 07/13/19 14:50 Creatinine 0.80 mg/dl (0.66-1.25) 07/13/19 14:50 Estimated Creat Clear 152 mL/min (50-200) 07/13/19 14:50 VTE Score: 4 VTE Risk Level: Low Risk - Prophylaxis VTE Prophylaxis Ordered?: Yes Types of VTE Prophylaxis: TEDS Knee High Location of Applied Device: Bilateral Lower Extremeties
[2019-07-13 16:22] LABS: Lymphocytes % 10 % (10-50); Monocytes % 2 % (2-9); Neutrophils % 88 % (42-76); RBC Morphology Normal; Total Cells Counted 100
[2019-07-14 06:12] LABS: Basophils % 0.1 % (0.1-2.0); Eosinophils % 0.3 % (0.1-12.0); Lymphocytes # 1.7 K/mm3 (0.7-4.5); Lymphocytes % 12.7 % (10-50); Mean Platelet Volume 7.6 fl (7.4-10.4); Neutrophils # 11.1 K/mm3 (1.8-7.8); Platelet Count 563 K/mm3 (142-424); White Blood Count 13.4 K/mm3 (4.8-10.8)
[2019-07-14 06:19] LABS: Calcium 9.2 mg/dl (8.4-10.2)
[2019-07-14 06:37] LABS: Hematocrit 37.3 % (42.0-52.0); Mean Corpuscular HGB Conc 32.3 g/dL (31.8-35.4); Mean Corpuscular Volume 91.1 fl (80-94); Monocytes # 0.6 K/mm3 (0.1-1.0); Monocytes % 4.4 % (1.7-9.3); Neutrophils % 82.5 % (37.0-80.0); Red Cell Distribution Width 13.1 % (11.5-17.5)
[2019-07-14 06:41] LABS: Hemoglobin 12.1 g/dL (14.1-18.0)
--- NOTE | 2019-07-14 10:57 | History & Physical Report ---
*Admission Date: 07/13/19 *Chief complaint: Chest pain, SOA *History of present illness: Mr. Mix is a previously healthy 44-year-old who presented on 07/01/2019 because of right lower quadrant pain. Was found to have ruptured appendicitis, peritonitis, feculent material in his abdomen. Had prolonged admission due to postop ileus secondary to inflammation with gradual improvement and tolerance of p.o. intake during hospitalization. Was discharged home on the with instructions to finish oral antibiotics for a total of 14 days of therapy. Presented yesterday to surgery clinic where he was directly admitted due to worsening right lower chest upper abdominal pain that was worse with deep inspiration. Also had reportedly pain with palpation of his back in the CVA region. He denies any fevers, dysuria, hematuria, cough. Just complained of inability to take deep breath and some mild SOA. CT imaging was obtained along with labs. Concern for mild elevation in white count, elevated d-dimer, and right lower lobe consolidation versus atelectasis with effusion. Scant effusion on the left. This morning reports persistent pain with deep inspiration but no longer painful on palpation. Was ambulating around the walker prior to exam. No nausea, vomiting, diarrhea, or dysuria today. Abdominal tenderness resolved. pain with deep inspiration. No improvement or worsening of SOA. [facility] History I have reviewed the patient's past medical history: Yes Medical History: Denies:: Cancer, Diabetes Mellitus Type 1, Diabetes Mellitus Type 2, MRSA *Have you ever received a pneumonia vaccine?: No *Have you received a flu vaccine this season?: No Other Surgeries: Yes: Appendectomy, Cholecystectomy Amputation: No Fractures: Yes (Collar bones) - *Social History Smoking Status: Never smoker Alcohol Intake: never Substance Use Type: denies use *Occupational Status:: employed Housing: house Household Members: family *Travel in the last 8 weeks: None Family Hx:: Hypertension Review of Systems - Review of Systems Review of systems:: pertinent systems reviewed and negative unless documented below (14 point review of systems performed, pertinent positives and negatives as per HPI) Meds Home Medications Medication Instructions Recorded Confirmed Type Hydrocod/Acet 5/325 mg [[place] 1 - 2 tab PO Q8HP PRN 3 Days #9 tab 07/07/19 07/13/19 Rx 5/325mg tablet] Amoxicillin/Potassium Clav 1 tab PO Q12H 07/13/19 07/13/19 History [Augmentin 875-125 Tablet] Allergies Allergy/AdvReac Type Severity Reaction Status Date / Time No Known Allergies Allergy Verified 07/13/19 13:28 Exam Vital signs and Labs for Last 24 Hours: Temp Pulse Resp BP Pulse Ox 98.3 F 109 H 18 126/81 92 L 07/14/19 07:33 07/14/19 07:33 07/14/19 07:33 07/14/19 07:33 07/14/19 07:33 Laboratory Results - last 24 hr 07/13/19 14:50: WBC 16.8 H, RBC 4.47 L, Hgb 13.4 L, Hct 41.5 L, MCV 92.9, MCH 29.9, MCHC 32.2, RDW 13.1, Plt Count 628 H, MPV 7.6, Neut % (Auto) 88.1 H, Lymph % (Auto) 8.7 L, [place] % (Auto) 2.9, Eos % (Auto) 0.2, Baso % (Auto) 0.2, Neut # (Auto) 14.8 H, Lymph # (Auto) 1.5, [place] # (Auto) 0.5, Eos # (Auto) 0.0, Baso # (Auto) 0.0, Total Counted 100, Neutrophils % (Manual) 88 H, Lymphocytes % (Manual) 10, Monocytes % (Manual) 2, Platelet Estimate Moderate increase, RBC Morphology Normal 07/13/19 14:50: Sodium 139, Potassium 3.7, Chloride 100, Carbon Dioxide 28, Anion Gap 14.7, BUN 7 L, Creatinine 0.80, Estimated Creat Clear 152, Estimated GFR 104, Est GFR ( Amer) 126, Glucose 131 H, Calcium 9.6 07/13/19 14:50: D-Dimer 2650 H* 07/14/19 05:44: WBC 13.4 H, RBC 4.10 L, Hgb 12.1 L, Hct 37.3 L, MCV 91.1, MCH 29.5, MCHC 32.3, RDW 13.1, Plt Count 563 H, MPV 7.6, Neut % (Auto) 82.5 H, Lymph % (Auto) 12.7, [place] % (Auto) 4.4, Eos % (Auto) 0.3, Baso % (Auto) 0.1, Neut # (Auto) 11.1 H, Lymph # (Auto) 1.7, [place] # (Auto) 0.6, Eos # (Auto) 0.0, Baso # (Auto) 0.0 07/14/19 05:44: Sodium 137, Potassium 4.0, Chloride 101, Carbon Dioxide 25, Anion Gap 15.0, BUN 9 D, Creatinine 0.70, Estimated Creat Clear 174, Estimated GFR 121, Est GFR ( Amer) 147, Glucose 116 H, Calcium 9.2 I & O for Last 24 hours: Intake & Output 07/11/19 07/12/19 07/13/19 07/14/19 23:59 23:59 23:59 23:59 Intake Total 120 / 120 0 / 0 Balance 120 / 120 0 / 0 Weight 93.44 kg 93.043 kg - *Routine HEENT Exam Head: Present: normocephalic Eye: Present: EOMI, PERRL ENT: Present: mucous membranes moist - *Routine Neck Exam Present: supple. Absent: lymphadenopathy - *Routine Respiratory Exam Comments: Good air movement bilaterally, faint crackles on deep inspiration and right lower lobe best heard posterior lung field. No wheeze or rhonchi. Patient stents when he takes a deep breath - *Routine Cardiovascular Exam Present: RRR - *Routine Abdominal Exam Present: soft, normoactive bowel sounds. Absent: tenderness - *Routine Extremities Exam Absent: cyanosis, clubbing, edema - Routine Back/Spine/Pelvis Exam Back/Spine: Present: CVA tenderness (Very minimal on right, describes it as uncomfortable but not exceptionally painful. Negative on the left) - *Routine Skin Exam Present: warm. Absent: rash - *Routine Neurological Exam Present: alert, oriented X3 Assessment and Plan (1) Pneumonia Current visit: Yes Status: Acute Qualifiers: Pneumonia type: due to unspecified organism Laterality: right Category: Medical Code(s): J18.9 - Pneumonia, unspecified organism (2) Perforated appendicitis Current visit: No Status: Resolved Category: Medical Code(s): K35.32 - Acute appendicitis with perforation and localized peritonitis, without abscess Per history, was recently admitted for this. Status post surgery. No active symptoms at this time. - Assessment and plan all Dx Assessment and Plan for all problems:: 44-year-old male with recent abdominal surgery for perforated appendicitis and peritonitis. We presented to the hospital with onset of right lower chest versus right upper quadrant pain. Found to have concerning finding for pneumonia and effusion in the right lower lobe. Initiate treatment for pneumonia. Will monitor for improvement over the next 24 hours. If tolerates well, pain improves, plan for transition outpatient management. Monitor for oxygen needs, goal greater than 92%. Continue Toradol at this time for inflammation and pleural pain. Regular diet as tolerated. Tolerating good p.o. intake so no IV fluids at this time. Ambulatory so no DVT prophylaxis. Full code. Condition stable, prognosis good.
[2019-07-15 06:13] LABS: Basophils % 0.3 % (0.1-2.0); Eosinophils # 0.2 K/mm3 (0.0-0.4); Eosinophils % 1.6 % (0.1-12.0); Hematocrit 36.2 % (42.0-52.0); Hemoglobin 11.5 g/dL (14.1-18.0); Lymphocytes # 1.8 K/mm3 (0.7-4.5); Lymphocytes % 16.9 % (10-50); Mean Corpuscular HGB Conc 31.7 g/dL (31.8-35.4); Mean Corpuscular Volume 93.8 fl (80-94); Mean Platelet Volume 8.2 fl (7.4-10.4); Monocytes # 0.6 K/mm3 (0.1-1.0); Monocytes % 5.8 % (1.7-9.3); Neutrophils # 7.9 K/mm3 (1.8-7.8); Neutrophils % 75.3 % (37.0-80.0); Platelet Count 550 K/mm3 (142-424); Red Blood Count 3.85 M/mm3 (4.60-6.20); White Blood Count 10.4 K/mm3 (4.8-10.8)
[2019-07-15 06:50] LABS: Anion Gap 11.9 mEq/L (5-15); Calcium 8.9 mg/dl (8.4-10.2)
--- NOTE | 2019-07-15 07:40 | Discharge Summary ---
General - General Admission date:: 07/13/19 Discharge date: 07/15/19 HPI HPI: Mr. Mix is a previously healthy 44-year-old who presented on 07/01/2019 because of right lower quadrant pain. Was found to have ruptured appendicitis, peritonitis, feculent material in his abdomen. Had prolonged admission due to postop ileus secondary to inflammation with gradual improvement and tolerance of p.o. intake during hospitalization. Was discharged home on the with instructions to finish oral antibiotics for a total of 14 days of therapy. Presented yesterday to surgery clinic where he was directly admitted due to worsening right lower chest upper abdominal pain that was worse with deep inspiration. Also had reportedly pain with palpation of his back in the CVA region. He denies any fevers, dysuria, hematuria, cough. Just complained of inability to take deep breath and some mild SOA. CT imaging was obtained along with labs. Concern for mild elevation in white count, elevated d-dimer, and right lower lobe consolidation versus atelectasis with effusion. Scant effusion on the left. This morning reports persistent pain with deep inspiration but no longer painful on palpation. Was ambulating around the walker prior to exam. No nausea, vo miting, diarrhea, or dysuria today. Abdominal tenderness resolved. pain with deep inspiration. No improvement or worsening of SOA. Hospital Course Hospital Course: Patient was admitted, improved nicely with IV fluids. Imaging studies revealed a small area of pleuritic inflammation in the right lower lung field consistent with lobar pneumonia. He was treated with intravenous levofloxacin, and over the next 36 hours patient improved nicely. Breathing was much better, still afflicted with some pleuritic pain. White count normalized. This morning patient is doing well, eating well, pain is vastly improved. Will be discharged with p.o. levofloxacin, Toradol for pain and close follow-up to review his lung exam. Objective Vital signs: Temp Pulse Resp BP Pulse Ox 98.6 F 101 H 18 118/79 94 L 07/15/19 04:00 07/15/19 04:00 07/15/19 04:00 07/15/19 04:00 07/15/19 04:00 Narrative: Patient is pleasant. Alert, oriented x3. Eating breakfast vigorously. Oropharynx clear, no JVD. Lungs have excellent air movement, minimal splinting pain on inspiration and crackles in the right lower lung field, otherwise clear. No edema, no clubbing. Abdomen soft, heart rate regular. Neurologic exam intact. Results Labs on day of discharge: Labs from last 24 hours 07/15/19 07/15/19 05:40 05:40 WBC 10.4 RBC 3.85 L Hgb 11.5 L Hct 36.2 L MCV 93.8 MCH 29.7 MCHC 31.7 L RDW 13.0 Plt Count 550 H MPV 8.2 Neut % (Auto) 75.3 Lymph % (Auto) 16.9 [place] % (Auto) 5.8 Eos % (Auto) 1.6 Baso % (Auto) 0.3 Neut # (Auto) 7.9 H Lymph # (Auto) 1.8 [place] # (Auto) 0.6 Eos # (Auto) 0.2 Baso # (Auto) 0.0 Sodium 140 Potassium 3.9 Chloride 105 Carbon Dioxide 27 Anion Gap 11.9 BUN 13 D Creatinine 0.80 Estimated Creat Clear 153 Estimated GFR 104 Est GFR ( Amer) 126 Glucose 103 H Calcium 8.9 DS: Diagnosis - Discharge Diagnosis (1) Pneumonia Status: Acute (2) Perforated appendicitis Status: Resolved (3) Pleurisy Status: Acute Discharge Plan - Patient Discharge Instructions ACTIVITY: Continue current activity DIET: continue same diet Patient Instructions: DI for Pleural Effusion - Follow up Plan Follow up with: David Lawrence MD [Primary Care Provider] - 07/20/19 Disposition: Home, [facility] Medications: Home Medications Medication Instructions Recorded Confirmed Type Hydrocod/Acet 5/325 mg [[place] 1 - 2 tab PO Q8HP PRN 3 Days #9 tab 07/07/19 07/13/19 Rx 5/325mg tablet] Amoxicillin/Potassium Clav 1 tab PO Q12H 07/13/19 07/13/19 History [Augmentin 875-125 Tablet] Ketorolac Tromethamine [Toradol 10 mg PO Q6H 5 Days #20 tab 07/15/19 Rx 10mg tablet] levoFLOXacin [Levaquin 500mg 500 mg PO DAILY #7 tab 07/15/19 Rx tab] Prescriptions/Medication Reconciliation: New levoFLOXacin [Levaquin 500mg tab] 500 mg PO DAILY #7 tab Ketorolac Tromethamine [Toradol 10mg tablet] 10 mg PO Q6H 5 Days #20 tab Discontinued Amoxicillin/Potassium Clav [Augmentin 875-125 Tablet] 1 tab PO Q12H Hydrocod/Acet 5/325 mg [[place] 5/325mg tablet] 1 - 2 tab PO Q8HP PRN 3 Days #9 tab PRN Reason: Moderate To Severe Pain - Problem Reconciliation Problems Reviewed?: Yes
== END 2019-07-15 08:45 | disposition home or self-care (01) ==
LOC: 2ND
PROVIDERS: ADMIT Internal Medicine Adolescent Medicine; ATTEND Internal Medicine Adolescent Medicine
DX: J18.9 Pneumonia, unspecified organism
CPT/HCPCS: 36415; 71275; 74177; 80048; 85007; 85025; 85378; G0378; J1956; Q9967

== ENCOUNTER → 2019-07-20 09:50 | Outpatient (CLI) | payer OTHER, SELFPAY ==
--- NOTE | 2019-07-20 09:55 | XR_ITS ---
PROCEDURE: XR CHEST W DECUBITUS CLINICAL HISTORY: PLEURAL EFFUSION Shortness of air, chest pain, hypoxia COMPARISON: XR CHEST PORTABLE from 07/03/2019 CT ANGIO CHEST from 07/13/2019 FINDINGS: The cardiomediastinal silhouette and pulmonary vascularity are within normal limits. There is a small right pleural effusion which does layer on the right lateral decubitus exam. No lobar consolidation or collapse. There are some mild atelectatic changes in the lung bases. No acute bony abnormalities. IMPRESSION: Small layering right pleural effusion with mild bibasilar atelectasis Dictated by: Antonio Leary MD 07/20/2019 11:21 Electronically signed by Antonio Leary MD in [place] 07/20/2019 11:21
== END ==
PROVIDERS: PCP Internal Medicine Adolescent Medicine; Visit Provider Internal Medicine Adolescent Medicine
DX: J90 Pleural effusion, not elsewhere classified (principal)
CPT/HCPCS: 71045

== ENCOUNTER 2019-07-21 10:46 | Observation (INO) ==
--- NOTE | 2019-07-21 13:42 | Pharmacy Consult Notes ---
[facility] Pharmacy VTE Monitoring - Patient Demographics Admission date: 07/21/19 Report Date: 07/21/19 Time: 13:41 Allergies/Adverse Reactions: Patient Allergies No Known Allergies Allergy (Verified 07/13/19 13:28) Height: 1.78 m Weight: 91.682 kg - VTE Risk Was VTE Risk Assessment Performed: Yes VTE Score: 3 VTE Risk Level: Low Risk - Prophylaxis VTE Prophylaxis Ordered?: Yes Types of VTE Prophylaxis: TEDS Knee High Location of Applied Device: Bilateral Lower Extremeties
[2019-07-21 13:45] LABS: Anion Gap 12.7 mEq/L (5-15); Bilirubin,Total 0.4 mg/dl (0.2-1.3)
[2019-07-21 13:46] LABS: Albumin Level 4.1 g/dl (3.5-5.0); Albumin/Globulin Ratio 1.1 (1.1-1.8); Calcium 9.8 mg/dl (8.4-10.2); Globulin 3.9 g/dL (1.3-3.2)
--- NOTE | 2019-07-21 13:51 | History & Physical Report ---
*Admission Date: 07/21/19 *Chief complaint: Pneumothorax *History of present illness: Mr. Mix is a 44-year-old gentleman with complicated course over the past few weeks. Recently seen for ruptured appendix, peritonitis, emergency appendectomy with subsequent development of chest pain and small effusion. Has been at home and doing well. Was seen in the outpatient clinic recently with concern for persistent right lower thoracic pain with deep inspiration though improved. Imaging showing persistent effusion. Was set up for thoracentesis today and unfortunately had a complication during procedure with development of moderately sized pneumothorax. Admitted to medicine for further management overnight and observation for stability of this complication. Patient denies any shortness of breath, worsening chest pain, nausea, vomiting. Does state he has been having some gas pain but that is improved with flatus. Tolerating regular diet. No fevers. Was on no oxygen prior to admission. Vitals have been stable since admission midday. 2 chest x-rays obtained showing stable pneumothorax approximately 3 cm [facility] History I have reviewed the patient's past medical history: Yes Medical History: Denies:: Cancer, Diabetes Mellitus Type 1, Diabetes Mellitus Type 2, MRSA *Have you ever received a pneumonia vaccine?: No *Have you received a flu vaccine this season?: No Other Surgeries: Yes: Appendectomy, Cholecystectomy Amputation: No Fractures: Yes (Collar bones) - *Social History Educational Level: Completed College Smoking Status: Former smoker Tobacco Type: cigarettes # Packs/Day (cigarettes): 1 #Yrs smoked (if former smoker): 5 Smoking End Date: 04/27/2004 Alcohol Intake: current Alcohol Intake Frequency:: 0-2 drinks per day Substance Use Type: denies use *Occupational Status:: employed Housing: other Household Members: spouse, children *Travel in the last 8 weeks: None Family Hx:: Cancer, Hypertension, Stroke Review of Systems - Review of Systems Review of systems:: pertinent systems reviewed and negative unless documented below (14 point review of systems performed, pertinent positives and negatives as per HPI) Meds Home Medications Medication Instructions Recorded Confirmed Type Ketorolac Tromethamine [Toradol 10 mg PO Q6H 07/21/19 07/21/19 History 10mg tablet] levoFLOXacin [Levaquin 500mg 500 mg PO DAILY 07/21/19 07/21/19 History tab] Allergies Allergy/AdvReac Type Severity Reaction Status Date / Time No Known Allergies Allergy Verified 07/13/19 13:28 Exam Vital signs and Labs for Last 24 Hours: Laboratory Results - last 24 hr 07/21/19 13:10: Sodium 139, Potassium 4.7, Chloride 102, Carbon Dioxide 29, Anion Gap 12.7, BUN 9, Creatinine 0.70, Estimated Creat Clear 171, Estimated GFR 121, Est GFR ( Amer) 147, Glucose 108 H, Calcium 9.8, Total Bilirubin 0.4, AST 31, ALT 48, Alkaline Phosphatase 93, Lactate Dehydrogenase 149 L, Total Protein 8.0 D, Albumin 4.1, Globulin 3.9 H, Albumin/Globulin Ratio 1.1 I & O for Last 24 hours: Intake & Output 07/18/19 07/19/19 07/20/19 07/21/19 23:59 23:59 23:59 23:59 Weight 91.682 kg - *Routine HEENT Exam Head: Present: normocephalic Eye: Present: EOMI, PERRL ENT: Present: mucous membranes moist - *Routine Neck Exam Present: supple. Absent: lymphadenopathy - *Routine Respiratory Exam Comments: Good air movement bilaterally, faint crackles right lower lobe, no rhonchi or wheeze; no subcutaneous emphysema - *Routine Cardiovascular Exam Present: RRR - *Routine Abdominal Exam Present: soft, normoactive bowel sounds. Absent: tenderness - *Routine Extremities Exam Absent: cyanosis, clubbing, edema - *Routine Skin Exam Present: warm. Absent: rash - *Routine Neurological Exam Present: alert, oriented X3 Assessment and Plan (1) Pneumothorax on right Current visit: Yes Status: Acute Category: Medical Code(s): J93.9 - Pneumothorax, unspecified Subsequent to thoracentesis. Pleural fluid sent for analysis, further management pending results. Continue supplemental oxygen at this time to assist in resorption of pneumothorax. Repeat chest x-ray in the morning to monitor for stability. Low threshold to pursue chest tube placement if patient develops respiratory distress, tachypnea, tachycardia, hemodynamic instability. If remains stable overnight, stable or smaller pneumothorax on imaging in the morning, will consider discharge home with close follow-up. (2) Pleurisy Current visit: No Status: Acute Category: Medical Code(s): R09.1 - Pleur isy Stable. No significant discomfort at this time. Continue PRN anti- inflammatories
[2019-07-22 06:19] LABS: Basophils % 0.6 % (0.1-2.0); Eosinophils # 0.3 K/mm3 (0.0-0.4); Hematocrit 35.7 % (42.0-52.0); Hemoglobin 11.1 g/dL (14.1-18.0); Lymphocytes # 2.1 K/mm3 (0.7-4.5); Lymphocytes % 31.8 % (10-50); Mean Corpuscular HGB Conc 31.2 g/dL (31.8-35.4); Mean Platelet Volume 7.5 fl (7.4-10.4); Monocytes # 0.4 K/mm3 (0.1-1.0); Monocytes % 6.5 % (1.7-9.3); Neutrophils # 3.7 K/mm3 (1.8-7.8); Platelet Count 551 K/mm3 (142-424); Red Blood Count 3.84 M/mm3 (4.60-6.20); Red Cell Distribution Width 12.9 % (11.5-17.5); White Blood Count 6.6 K/mm3 (4.8-10.8)
[2019-07-22 06:36] LABS: Anion Gap 12.4 mEq/L (5-15)
--- NOTE | 2019-07-22 07:42 | Discharge Summary ---
General - General Admission date:: 07/21/19 Discharge date: 07/22/19 HPI HPI: Mr. Mix is a 44-year-old gentleman with complicated course over the past few weeks. Recently seen for ruptured appendix, peritonitis, emergency appendectomy with subsequent development of chest pain and small effusion. Has been at home and doing well. Was seen in the outpatient clinic recently with concern for persistent right lower thoracic pain with deep inspiration though improved. Imaging showing persistent effusion. Was set up for thoracentesis today and unfortunately had a complication during procedure with development of moderately sized pneumothorax. Admitted to medicine for further management overnight and observation for stability of this complication. Patient denies any shortness of breath, worsening chest pain, nausea, vomiting. Does state he has been having some gas pain but that is improved with flatus. Tolerating regular diet. No fevers. Was on no oxygen prior to admission. Vitals have been stable since admission midday. 2 chest x-rays obtained showing stable pneumothorax approximately 3 cm Hospital Course Hospital Course: 44-year-old with traumatic pneumothorax secondary to thoracentesis. Has done quite well since admission. Initially approximately 3 cm in span, has decreased to 2 cm this morning on repeat imaging. Patient remains hemodynamically stable, denies tachypnea, tachycardia, nausea, vomiting, shortness of breath, chest pain beyond his previously present pleuritic pain. Overall doing quite well with signs of resorption of pneumothorax. Medically stable for discharge home with close follow-up. Plan to touch base with the patient tomorrow for monitoring of respiratory status. Made it very clear that if he has acute change in respiratory status to seek medical care immediately. We will plan for repeat chest x-ray beginning of the week. Plan to discharge this afternoon and observe through the day for extra precaution. Patient comfortable with this plan Objective Vital signs: Temp Pulse Resp BP Pulse Ox 98.4 F 90 17 110/81 94 L 07/22/19 04:00 07/22/19 04:00 07/22/19 04:00 07/22/19 04:00 07/22/19 06:40 Narrative: - *Routine HEENT Exam Head: Present: normocephalic Eye: Present: EOMI, PERRL ENT: Present: mucous membranes moist - *Routine Neck Exam Present: supple. Absent: lymphadenopathy - *Routine Respiratory Exam Comments: Good air movement bilaterally, faint crackles right lower lobe with no significant change from yesterday, no rhonchi or wheeze; no subcutaneous emphysema - *Routine Cardiovascular Exam Present: RRR - *Routine Abdominal Exam Present: soft, normoactive bowel sounds. Absent: tenderness - *Routine Extremities Exam Absent: cyanosis, clubbing, edema - *Routine Skin Exam Present: warm. Absent: rash - *Routine Neurological Exam Present: alert, oriented X3 Results Labs on day of discharge: Labs from last 24 hours 07/22/19 07/22/19 07/21/19 05:45 05:45 13:10 WBC 6.6 RBC 3.84 L Hgb 11.1 L Hct 35.7 L MCV 93.0 MCH 29.0 MCHC 31.2 L RDW 12.9 Plt Count 551 H MPV 7.5 Neut % (Auto) 56.0 Lymph % (Auto) 31.8 [place] % (Auto) 6.5 Eos % (Auto) 5.0 Baso % (Auto) 0.6 Neut # (Auto) 3.7 Lymph # (Auto) 2.1 [place] # (Auto) 0.4 Eos # (Auto) 0.3 Baso # (Auto) 0.0 Sodium 141 139 Potassium 4.4 4.7 Chloride 104 102 Carbon Dioxide 29 29 Anion Gap 12.4 12.7 BUN 9 9 Creatinine 0.80 0.70 Estimated Creat Clear 152 171 Estimated GFR 104 121 Est GFR ( Amer) 126 147 Glucose 104 H 108 H Calcium 9.0 9.8 Total Bilirubin 0.4 AST 31 ALT 48 Alkaline Phosphatase 93 Lactate Dehydrogenase 149 L Total Protein 8.0 D Albumin 4.1 Globulin 3.9 H Albumin/Globulin Ratio 1.1 DS: Diagnosis - Discharge Diagnosis (1) Pneumothorax on right Status: Acute Problem details: Improvement with supplemental oxygen. Will monitor through the day, if remains stable, discharge home with close follow-up and repeat imaging beginning of the week. (2) Pleurisy Status: Acute Discharge Plan - Patient Discharge Instructions ACTIVITY: Continue current activity DIET: continue same diet Patient Instructions: DI for Pneumothorax - Follow up Plan Follow up with: Javier Pablo MD [Staff Physician] - (Telehealth visit Thursday or Thursday) Home Medications: Home Medications Medication Instructions Recorded Confirmed Type Ketorolac Tromethamine [Toradol 10 mg PO Q6H 07/21/19 07/21/19 History 10mg tablet] levoFLOXacin [Levaquin 500mg 500 mg PO DAILY 07/21/19 07/21/19 History tab] Prescriptions/Medication Reconciliation: Continued Ketorolac Tromethamine [Toradol 10mg tablet] 10 mg PO Q6H levoFLOXacin [Levaquin 500mg tab] 500 mg PO DAILY - Problem Reconciliation Problems Reviewed?: Yes
== END 2019-07-22 17:05 | disposition home or self-care (01) ==
LOC: RAD 10:46 → INTOOBSV 12:41 → 2ND 12:41
PROVIDERS: ADMIT Internal Medicine Adolescent Medicine; ATTEND Internal Medicine Adolescent Medicine
CPT/HCPCS: 32555; 36415; 71010; 71020; 71045; 71046; 80048; 80053; 83615; 85025; 87070; 87205; 94761; G0378

== ENCOUNTER → 2019-07-25 14:32 | Outpatient (CLI) | payer OTHER, SELFPAY ==
--- NOTE | 2019-07-25 14:35 | XR_ITS ---
PROCEDURE: XR CHEST AP CLINICAL HISTORY: pneumothorax COMPARISON: Follow-up FINDINGS: There is been a decrease in size of the right-sided pneumothorax. A residual apical component measuring 1.3 centimeters is noted. This was approximately 2.1 centimeter. There is improved aeration of both lung bases. There is some residual density in both bases consistent with atelectasis or pneumonitis. A small right pleural effusion is noted. IMPRESSION: Interval improvement. Residual right apical pneumothorax measures 1.3 centimeters. Dictated by: Chidi Appiah 07/25/2019 16:13 Electronically signed by Chidi Appiah in [place] 07/25/2019 16:13
== END ==
PROVIDERS: PCP Internal Medicine Adolescent Medicine; Visit Provider Internal Medicine Adolescent Medicine
DX: J93.9 Pneumothorax, unspecified (principal)
CPT/HCPCS: 71045

== ENCOUNTER → 2020-05-24 16:25 | Outpatient (CLI) | payer OTHER, SELFPAY | PROVIDERS: PCP Internal Medicine Adolescent Medicine; Visit Provider Internal Medicine Adolescent Medicine | DX: Z20.822 Contact with and (suspected) exposure to COVID-19 (principal) | CPT/HCPCS: U0003 ==

== ENCOUNTER → 2021-02-05 16:15 | Outpatient (CLI) | payer OTHER, SELFPAY ==
--- NOTE | 2021-02-05 16:20 | XR_ITS ---
PROCEDURE: XR KNEE RT 3V CLINICAL INDICATION: RT ANTERIOR KNEE PAIN, SWELLING OF RT KNEE JOINT COMPARISON: No exams were available for comparison FINDINGS: There are minimal osteoarthritic changes the involving all 3 compartments. There is a small suprapatellar effusion. No fracture or dislocation. No lytic or blastic change. Other findings:None. IMPRESSION: Mild osteoarthritis with knee joint effusion Dictated by: Antonio Leary MD 02/05/2021 16:50 Antonio Leary MD in [place] 02/05/2021 16:50
== END ==
PROVIDERS: PCP Nurse Practitioner Family; Visit Provider Nurse Practitioner Family
DX: M25.561 Pain in right knee (principal); M25.461 Effusion, right knee
CPT/HCPCS: 73562

== ENCOUNTER 2021-07-01 08:00 | Outpatient (RCR) | payer OTHER, SELFPAY ==
--- NOTE | 2021-06-03 10:52 | [facility].OTOPEV ---
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 Patient stated having pain in the right shoulder for the past 6 months and it has progressively gotten worse. 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 No imaging completed on R shoulder at this time. Chief Complaint Pain,Weakness Symptom Type Ache,Dull Symptoms Relieved By Nothing Symptoms Aggravated By Physical Activity Prior Functional Limitations None Current Functional Limitations Reaching,Lifting,Recreation Activity Symptom Description Intermittent Level of pain today (0-10) 0 Pain scale - at its best (0-10) 0 Pain scale - at its worst (0-10) 5 Shoulder/Elbow Eval Shoulder Objective Measurements Shoulder ROM Right Shoulder Abduction Active Range of 92 Motion (degrees) Shoulder Flexion Active Range of Motion 125 (degrees) Query Text: Shoulder External Rotation Active Range 50 of Motion (degrees) Shoulder Internal Rotation Active Range 30 of Motion (degrees) pain with active ROM shoulder exam right standard Shoulder MMT Shoulder Abduction Strength Grade 3- Fair- Shoulder Extension Strength Grade 3- Fair- Shoulder Flexion Strength Grade 3- Fair- Shoulder Horizontal Abduction Strength 3- Fair- Grade Shoulder Horizontal Adduction Strength 3- Fair- Grade Infraspinatus/Teres Minor Strength Grade 3- Fair- Shoulder External Rotation Strength 3- Fair- Grade Shoulder Internal Rotation Strength 3- Fair- Grade Elbow Objective Measurements OT Outpatient Assessment Impairments Problems/Impairments Impaired Range of Motion, Impaired Strength,Impaired Lifting,Subjective C/O Pain Prognosis Rehab Potential Good Clinical Impression Consistent with Diagnosis Yes Short Term Goals Number of Weeks 2 Increase Range of
== END 2021-07-01 08:05 | disposition home or self-care (01) ==
LOC: OT 08:00
PROVIDERS: PCP Nurse Practitioner Family; Visit Provider Nurse Practitioner Family
DX: M75.01 Adhesive capsulitis of right shoulder (principal)
CPT/HCPCS: 97010; 97014; 97110; 97140; 97165; 97530; G0283

== ENCOUNTER 2024-02-29 12:42 | Outpatient (CLI) | payer BC, SELFPAY ==
--- NOTE | 2024-02-29 12:48 | XR_ITS ---
PROCEDURE INFORMATION: Exam: XR Right Hand Exam date and time: 02/29/2024 1:25 PM Age: 49 years old Clinical indication: Injury or trauma; Other: Cat bite; Puncture; Hand; Right; Additional info: Bitten by a cat TECHNIQUE: Imaging protocol: Radiologic exam of the right hand. Views: 3 or more views. COMPARISON: No relevant prior studies available. FINDINGS: Bones/joints: No visible fracture or dislocation. There is diffuse cellulitis involving the dorsal carpal region. Soft tissues: See Bones/joints finding. Other findings: Punctate radiopaque structure in the 2nd-3rd interdigital space may represent retained foreign body. IMPRESSION: 1. No visible fracture or dislocation. 2. Punctate radiopaque structure in the 2nd-3rd interdigital space may represent retained foreign body. 3. There is diffuse cellulitis involving the dorsal carpal region.
== END 2024-02-29 23:59 | disposition home or self-care (01) ==
LOC: RAD 12:44
PROVIDERS: PCP Internal Medicine Adolescent Medicine; Visit Provider Internal Medicine Adolescent Medicine
DX: S61.431S Puncture wound without foreign body of right hand, sequela (principal); L03.113 Cellulitis of right upper limb; W55.01XS Bitten by cat, sequela
CPT/HCPCS: 73130